=== PATIENT | female | born 1985 | race African-American/Black ===

== ENCOUNTER 2018-04-11 19:56 | Emergency (ER) | payer OTHER ==
[~2018-04-11] VITALS: Ht 177.8 cm; Wt 138.3 kg
[~2018-04-11 19:56] MED LIST: HYDROCODONE-AP1 EAC6 PO; SENNA8.6 MG PO
[2018-04-11] MEDS ORDERED: ZOFRAN ODT8 MG PO (22:12)
[2018-04-11] MEDS ORDERED: LITHIUM CARBON300 M3 PO (22:36)
[2018-04-11] MEDS ORDERED: SERTRALINE HCL50 MG PO (22:36)
[2018-04-11] MEDS ORDERED: TOPAMAX50 MG PO (22:37)
[2018-04-11 22:42] VITALS: BP 171/105
== END 2018-04-11 22:43 | disposition home or self-care (01) ==
LOC: ER 19:56
DX: R11.2 Nausea with vomiting, unspecified (principal); R19.7 Diarrhea, unspecified; Z85.43 Personal history of malignant neoplasm of ovary

== ENCOUNTER 2018-04-26 22:09 | Emergency (ER) | payer OTHER ==
[~2018-04-26] VITALS: Ht 177.8 cm; Wt 136.1 kg
[~2018-04-26 22:09] MED LIST changes: +LITHIUM CARBON300 M3 PO; +SERTRALINE HCL50 MG PO; +TOPAMAX50 MG PO; +ZOFRAN ODT8 MG PO
[2018-04-26] MEDS ORDERED: HYDROCHLOROTHIA25 M2 PO (22:18)
[2018-04-26 22:44] LABS: ABSOLUTE NEUTROPHILS 6.8 thou/uL (1.4-8.2); BASOPHILS 0.7 % (0.0-2.0); EOSINOPHILS 0.4 % (0.0-3.0); HEMATOCRIT 41.9 % (37.0-47.0); HEMOGLOBIN 13.7 gm/dL (12.0-15.0); MCH 27.3 pg (26.0-34.0); MCHC 32.8 g/dL (28.0-37.0); MCV 83.3 fL (80.0-100.0); MONOCYTES 5.7 % (1.0-8.0); PLATELET COUNT 295 thou/uL (150-400); POLYS 73.2 % (36.0-66.0); RBC 5.03 mil/uL (4.20-5.00); WBC 9.3 thou/uL (4.0-11.0)
[2018-04-26 22:50] LABS: ANION GAP 8 mmol/L (7-16); BUN 11 mg/dL (7-18); CALCIUM 9.9 mg/dL (8.5-10.1); CHLORIDE 100 mmol/L (98-107); CO2 29 mmol/L (21-32); CREATININE 0.9 mg/dL (0.6-1.0); POTASSIUM 3.8 mmol/L (3.5-5.1); SODIUM 137 mmol/L (136-145)
[2018-04-26 22:56] LABS: ALBUMIN 3.8 g/dL (3.4-5.0); DIRECT BILIRUBIN < 0.1 mg/dL (<0.1-0.3); SGOT 22 U/L (15-37); SGPT 28 U/L (30-65); TOTAL BILIRUBIN 0.4 mg/dL (<0.1-1.0); TOTAL PROTEIN 9.6 g/dL (6.4-8.2)
[2018-04-26 23:08] LABS: GLUCOSE 115 mg/dL (74-106)
[2018-04-26 23:19] LABS: URINE BILIRUBIN NEGATIVE (Negative); URINE BLOOD NEGATIVE (Negative); URINE CLARITY CLEAR; URINE COLOR YELLOW; URINE GLUCOSE-RANDOM* NEGATIVE (Negative); URINE KETONES NEGATIVE (Negative); URINE LEUKOCYTES-REFLEX NEGATIVE (Negative); URINE NITRITE-REFLEX NEGATIVE (Negative); URINE PROTEIN (DIPSTICK) NEGATIVE (Negative); URINE UROBILINOGEN 0.2 E.U./dl (0.2-1.0)
[2018-04-27] MEDS ORDERED: BENTYL 20 MG TA20 M1 PO (01:57)
[2018-04-27] MEDS ORDERED: CARAFATE 1 GM TA1 G1 PO (01:57)
[2018-04-27 02:03] VITALS: BP 177/109
== END 2018-04-27 02:06 | disposition home or self-care (01) ==
LOC: ER 22:09
PROVIDERS: Emergency Medicine
DX: R10.13 Epigastric pain (principal); R10.12 Left upper quadrant pain; R11.10 Vomiting, unspecified; Z85.43 Personal history of malignant neoplasm of ovary

== ENCOUNTER 2018-09-06 22:54 | Emergency (ER) | payer OTHER ==
[~2018-09-06] VITALS: Ht 175.3 cm; Wt 136.1 kg
[~2018-09-06 22:54] MED LIST changes: +BENTYL 20 MG TA20 M1 PO; +CARAFATE 1 GM TA1 G1 PO; +HYDROCHLOROTHIA25 M2 PO; +TOPROL XL100 MG PO
[2018-09-07] MEDS ORDERED: GUAIFEN-CODEINE10 ML PO (03:25)
[2018-09-07 03:32] VITALS: BP 149/83
== END 2018-09-07 03:33 | disposition home or self-care (01) ==
LOC: ER 22:54
DX: J06.9 Acute upper respiratory infection, unspecified (principal); I10 Essential (primary) hypertension

== ENCOUNTER 2018-09-09 08:57 | Emergency (ER) | payer OTHER ==
[~2018-09-09] VITALS: Ht 177.8 cm; Wt 138.8 kg
[~2018-09-09 08:57] MED LIST changes: +GUAIFEN-CODEINE10 ML PO
[2018-09-09] MEDS ORDERED: TOPAMAX 100 MG100 MG PO (09:40)
[2018-09-09] MEDS ORDERED: TESSALON PERLE100 MG PO (11:43)
[2018-09-09] MEDS ORDERED: ZOFRAN ODT4 MG PO (11:43)
[2018-09-09 11:50] VITALS: BP 112/75
== END 2018-09-09 11:57 | disposition home or self-care (01) ==
LOC: ER 08:57
DX: J06.9 Acute upper respiratory infection, unspecified (principal); I10 Essential (primary) hypertension

== ENCOUNTER → 2018-09-21 | Outpatient (CLI) | payer OTHER ==
[~2018-09-21] MED LIST changes: +TESSALON PERLE100 MG PO; +TOPAMAX 100 MG100 MG PO; +ZOFRAN ODT4 MG PO
--- NOTE | 2018-09-23 23:41 | SLE ---
[facility] [place] [address] POLYSOMNOGRAPHY STUDY Name: KENAN SZYMANSKI Room #: REG [facility]#: [id number] Admission: 09/21/18 ������������������ Attend Phys: Kamaljit Rodriguez MD Discharge: ������������������ Date of : 85 Report #: [id number] THIS REPORT FOR: //name// CC: Kamaljit Ogden MD DATE OF SERVICE: 09/21/2018 ATTENDING PHYSICIAN: Dr. Harpal Ogden. The patient is 33-year-old who weighs 400 pounds with a BMI of 78.1. The patient's Terreton score was 14 out of a maximum of 24. The patient underwent diagnostic sleep study at [facility]. During the night study, the patient spent 471 minutes in bed and slept for 453 minutes with a sleep efficiency of 96%. Sleep latency was 2.9 minutes with a REM latency of 204 minutes. Overall, sleep architecture showed normal stage 1 sleep, increased stage 2 sleep, normal N3 sleep and normal REM sleep. During the night of the study, the patient had 30 apneas. There were 29 obstructive, and 1 central and 85 hypopneas. The patient's apnea hypopnea index was 15.2 per hour with a REM index of 57.3 per hour. EKG revealed an average heart rate of 73 beats per minute with a maximum 100 beats per minute. No sustained arrhythmias observed. PLMS were seen at an index of 2 per hour and only 0.7 per hour caused EEG arousals. Nocturnal oximetry study revealed an average oxygen saturation of 95% with a lowest of 83%, 3.6 minutes were spent at an oxygen saturation less than 90%. The patient did meet the criteria for CPAP initiation, but it was too late in the night and there was not enough time to initiate CPAP. IMPRESSION: 1. Rclw-ig-qfpygpua sleep apnea-hypopnea syndrome with worsening during REM sleep. Total AHI 15.2 per hour with a REM AHI of 57.3 per hour. 2. No clinically significant periodic limb movements of sleep. 3. No clinically significant nocturnal hypoxia. RECOMMENDATIONS: 1. The patient is clinically symptomatic with an Terreton score of 14. I would recommend that the patients sleep apnea should be treated with either oral appliance as recommended by the dentist vs a trial of CPAP titration. [address] [address] POLYSOMNOGRAPHY STUDY Name: SZYMANSKIKENAN [id number] Admission: 09/21/18 ������������������ Attend Phys: Kamaljit Rodriguez MD Discharge: ������������������ Date of : 85 Report #: [id number] 2. Once the patient is optimally treated, then follow up in 4-6 weeks to assess compliance and to document clinical improvement. 3. Weight loss is strongly advised. 4. 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 5. Cautioned regarding driving until symptoms of sleep apnea resolve with the above recommendations. ��������������������������������������������� <ELECTRONICALLY SIGNED> ���������������������������������������� By: Kamaljit Rodriguez MD ��������������������������������������������� 09/23/18 2341 [id number] Kamaljit Rodriguez MD /nt
== END ==
LOC: SLEEPLAB 13:59
DX: G47.33 Obstructive sleep apnea (adult) (pediatric) (principal)

== ENCOUNTER 2018-10-18 10:09 | Emergency (ER) | payer OTHER ==
[~2018-10-18] VITALS: Ht 175.3 cm; Wt 142.9 kg
[2018-10-18 10:52] LABS: ABSOLUTE NEUTROPHILS 7.1 thou/uL (1.4-8.2); BASOPHILS 0.8 % (0.0-2.0); EOSINOPHILS 0.6 % (0.0-3.0); HEMOGLOBIN 12.2 gm/dL (12.0-15.0); LYMPHOCYTES 24.7 % (24.0-44.0); MCH 27.1 pg (26.0-34.0); MCHC 32.9 g/dL (28.0-37.0); MCV 82.4 fL (80.0-100.0); MONOCYTES 7.3 % (1.0-8.0); PLATELET COUNT 286 thou/uL (150-400); POLYS 66.6 % (36.0-66.0); RBC 4.49 mil/uL (4.20-5.00); RDW 14.8 % (10.5-14.5); WBC 10.7 thou/uL (4.0-11.0)
[2018-10-18 10:56] LABS: ANION GAP 7 mmol/L (7-16); BUN 10 mg/dL (7-18); CHLORIDE 102 mmol/L (98-107); CO2 30 mmol/L (21-32); CREATININE 0.8 mg/dL (0.6-1.0); GLUCOSE 104 mg/dL (74-106); POTASSIUM 3.4 mmol/L (3.5-5.1); SODIUM 139 mmol/L (136-145)
[2018-10-18 11:05] LABS: TROPONIN-I <0.06 ng/mL (<0.06)
[2018-10-18] MEDS ORDERED: NAPROSYN500 MG PO (11:44)
[2018-10-18 11:53] VITALS: BP 185/92
--- NOTE | 2018-10-19 08:10 | EKG ---
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: LÓPEZ : 1985 Requested By: Randa Wallis Order Number: [id number] MD: Homer Chávez Measurements Intervals [place] Rate: 87 P: 68 NC: 161 QRS: 53 QRSD: 96 T: 29 QT: 393 QTc: 473 Interpretive Statements Sinus rhythm Normal tracing No previous ECG available for comparison Electronically Signed On 10-19-2018 8:10:22 CDT by Homer Chávez [email or web address] ��������������������������������������������� <ELECTRONICALLY SIGNED> ���������������������������������������� By: Homer Chávez MD, [facility] ��������������������������������������������� 10/19/18 0810 [id number] [id number] Homer Chávez MD, FACC /EPI
== END 2018-10-18 11:54 | disposition home or self-care (01) ==
LOC: ER 10:09
PROVIDERS: Physician Assistant
DX: R07.89 Other chest pain (principal); I10 Essential (primary) hypertension

== ENCOUNTER → 2019-02-22 | Outpatient (CLI) | payer OTHER ==
[~2019-02-22] MED LIST changes: +NAPROSYN500 MG PO
== END ==
LOC: ULTRA 10:43
DX: R60.9 Edema, unspecified (principal)

== ENCOUNTER → 2019-11-16 | Outpatient (CLI) | payer OTHER ==
[~2019-11-16] VITALS: Ht 177.8 cm; Wt 158.8 kg
[~2019-11-16] MED LIST changes: +HAIR, SKIN & N1 EAC3 PO; +MULTI VITAMIN1 EACH PO
--- NOTE | ~2019-11-16 | P ---
[facility] [place] [address] PROCEDURE REPORT Name: KENAN SZYMANSKI Room #: REG [facility] Yan#: [id number] Admission: 11/16/19 Attend Phys: Theodore Logan Discharge: Date of : 85 Report #: [id number] THIS REPORT FOR: cc: Mirna Mcclure DNP, Mary E. DNP McElhinney, Christian C. MD ~ CC: Theodore Red MD DATE OF SERVICE: 11/16/2019 PROCEDURE PERFORMED: Upper endoscopy. HISTORY OF PRESENT ILLNESS: The patient is a 34-year-old female with a history of morbid obesity, scheduled for gastric Sonia-en-Y bypass surgery in the near future. Plan is for upper endoscopy prior to surgery. She denies any symptoms other than mild heartburn at times. No nausea, vomiting, or dysphagia. No previous history of upper endoscopy. DESCRIPTION OF PROCEDURE: The risks and benefits of the procedure were explained to the patient, those risks including but not limited to bleeding, perforation and the risk of sedation. She understood these risks and gave informed consent. Sedation was given using propofol per anesthesia. Next, using a standard Olympus upper endoscope, the scope was placed in the patient's mouth and advanced under direct vision through the esophagus, stomach and into the second portion of the duodenum. The larynx was normal. The esophagus was normal throughout. The GE junction was normal. Overall, the gastric mucosa was normal. The pylorus was normal and patent. The duodenal bulb, first and second portion were all normal. The scope was then withdrawn and the procedure terminated. The patient tolerated the procedure well. IMPRESSION: Normal upper endoscopy. RECOMMENDATIONS: Okay to proceed with gastric bypass surgery in the near future. Thank you for allowing me to participate in her care. By: [id number] [id number] Theodore Rendon MD /nt
== END | disposition home or self-care (01) ==
LOC: GI 07:50 → EDSTATUS 13:03 → GI 13:10
DX: E66.01 Morbid (severe) obesity due to excess calories (principal); R12 Heartburn; I10 Essential (primary) hypertension; E11.9 Type 2 diabetes mellitus without complications; K21.9 Gastro-esophageal reflux disease without esophagitis; G47.30 Sleep apnea, unspecified; Z98.890 Other specified postprocedural states; Z79.899 Other long term (current) drug therapy; Z90.49 Acquired absence of other specified parts of digestive tract; Z11.59 Encounter for screening for other viral diseases; Z68.30 Body mass index [BMI] 30.0-30.9, adult
CPT/HCPCS: 62110; 62900

== ENCOUNTER 2019-11-24 06:21 | Inpatient (IN) | payer OTHER ==
[~2019-11-24] VITALS: Ht 175.3 cm; Wt 158.8 kg
[2019-11-24 07:15] LABS: HEMATOCRIT 36.2 % (37.0-47.0); MCH 27.4 pg (26.0-34.0); MCHC 33.1 g/dL (28.0-37.0); MCV 82.7 fL (80.0-100.0); RBC 4.38 mil/uL (4.20-5.00); RDW 15.5 % (10.5-14.5); WBC 8.1 thou/uL (4.0-11.0)
[2019-11-24 07:30] LABS: CALCIUM 8.8 mg/dL (8.5-10.1); CREATININE 0.8 mg/dL (0.6-1.0); POTASSIUM 3.5 mmol/L (3.5-5.1)
[2019-11-24 07:37] VITALS: BP 136/95
[2019-11-24 07:37] LABS: ALBUMIN 3.1 g/dL (3.4-5.0); TOTAL BILIRUBIN 0.6 mg/dL (0.2-1.0); TOTAL PROTEIN 7.8 g/dL (6.4-8.2)
--- NOTE | 2019-11-24 07:40 | EKG ---
[facility] [place] [address] ELECTROCARDIOGRAM REPORT Name: KENAN SZYMANSKI Room #: 150-5 ADM IN M.R.#: [id number] Admission: 11/24/19 Attend Phys: Darius Red MD Discharge: Date of : 85 Report #: [id number] THIS REPORT FOR: cc: Mirna Mcclure DNP, Mary E. DNP Lundgren, Craig H. 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: YOLANDA : 1985 Requested By: Darius Red Order Number: [id number] MD: Homer Chávez Measurements Intervals [place] Rate: 88 P: [place]: QRS: 63 QRSD: 91 T: 28 QT: 369 QTc: 447 Interpretive Statements Sinus rhythm Baseline wander in lead(s) II,III,aVR,aVF,V3 Compared to ECG 10/18/2018 10:17:09 No significant change was found Electronically Signed On 11-24-2019 7:39:27 CDT by Homer Chávez [email or web address] <ELECTRONICALLY SIGNED> By: Homer Chávez MD, [facility] 11/24/19 [id number] Homer Chávez MD, [facility] /EPI
[2019-11-24 13:00] VITALS: BP 167/96
[2019-11-24 13:33] VITALS: BP 178/97
--- NOTE | 2019-11-24 15:37 | NUR ---
PATIENT ADMITTED FROM OR, WITH GASTRIC BYPASS, PATIENT ALERT AND ORIENTED X 4. UP WITH ASSIST X 1 WITH GAIT BELT AND WALKER. PATIENT IS A FALL RISK, FALL PRECAUTIONS IN PLACE. PATIENT C/O GAS PAINS WITH ABDOMEN AREA, NOT WANTING PAIN MEDS AT THIS TIME. PATIENT HAS LEFT HAND IV IN PLACE. PATIENT IS NPO. NOTIFIED PAHARMACY IN REGARD TO IV FLUID ORDER, NOT SHOWING UP IN THE COMPUTER, MARTINA/RN WILL HANDLE MEDS AND IV FLUIDS. ADMIT NOTE DONE.
--- NOTE | 2019-11-24 19:14 | NUR ---
PT REC'D FROM REC RM AT 1250 ALERT AND IN NO ACUTE DISTRESS. PT SETTLED INTO ROOM AND ASSESSMENT COMPLETED. PT RUNNING HIGH BP IN OR AND REC RM BUT NOW BETTER. AMBULATED IN THE HALLS TO HELP ALLEVIATE GAS PAINS. PT HAD SOME BRIGHT RED SPIT UP WHEN BELCHED THAT WAS REPORTED TO DR. STANFORD. ORDER FOR SWABS AND ZOFRAN OBTAINED WELL. IV FLUIDS INFUSING. GOOD URINE OUTPUT. MS FOR PAIN.
[2019-11-24 20:30] VITALS: BP 180/93
[2019-11-25 00:07] LABS: GLYCOHEMOGLOBIN (HGB A1C) 6.7 % (4.8-5.6)
[2019-11-25 00:53] VITALS: BP 182/100
--- NOTE | 2019-11-25 03:11 | NUR ---
ASSESSMENT COMPLETED. PT RESTING IN BED. AFEBRILE.LAP SITES TO ABDOMEN LOOK OKAY. BRIDGES TO D/D WITH GOOD OUTPUT- IVF INFUSING. PT HAS NOT BEEN UP WALKING TONIGHT. BP ELEVATED SO PRN HYDARALIZINE IN PLACE AND IN USE.PT BEEN C/O HICCUPS , CAUSING HER SO MUCH DISCOMFORT. ONE TIME ORDER OF REGLAN IVP GIVEN. PT DENIES NAUSEA BUT STATES THE HICCUPS MAKES HER SPIT UP SOME BLOOD TINGED SPIT-DR MUHAMMAD MADE AWARE EARLIER ON IN THE SHIFT.PT DENIES ANY CHEST TIGHTNESS OR HEADACHE. SHE ALSO DENIES HEADACHE OR DIZZINESS. SHE DOES NOT LIKE THE SCDS.OTHERWISE PT IS CALM AND COOPERATIVE.WILL CONTINUE WITH POC TILL EOS.
[2019-11-25 05:36] VITALS: BP 155/109
--- NOTE | 2019-11-25 07:27 | NUR ---
ASSUMED CARE OF PATIENT SHE IS SITTING UP IN BED. STATES DID NOT SLEEP. REMAINS ON CLEAR LIQUIDS. STILL SPITTING UP BLOOD TINGED SPUTUM. IV FLUIDS INFUSING ORDERED. WAS UP WALKING YESTERDAY. WILL MANAGE N&V AND PAIN MANAGEMENT.
[2019-11-25 07:58] VITALS: BP 183/125
--- NOTE | 2019-11-25 11:30 | NUR ---
DR PHILLIPS HERE TO SEE PATIENT STATED BRIDGES COULD BE DCD. THIS NURSE DCD WITH NO DISCOMFORT TO PATIENT.PT UP IN BEDSIDE CHAIR.
--- NOTE | 2019-11-25 12:25 | NUR ---
ASSESSMENT: CM REVIEWED CHART AND SPOKE WITH PATIENT. PT IS ALERT AND ORIENTED X4. PT IS S/P LAP GASTRIC BYPASS. PT REPORTS THAT SHE LIVES IN A HOUSE WITH HER FIANCE. PT REPORTS THAT SHE HAS TWO STEPS TO ENTER WITH A HANDRAIL AND NO STEPS ONCE INSIDE. PT REPORTS THAT SHE IS INDEPENDENT WITH ADLS AND AMBULATION. PT REPORTS THAT SHE HAS NOT HAD HH IN THE PAST. PT HAS NO DME OR THE NEED FOR IT. CM DISCUSSED ROLE. PT REPORTS NO FURTHER NEEDS FROM CM. PT REPORTS PLAN IS FOR HER TO LIKELY DISCHARGE HOME TOMORROW.
--- NOTE | 2019-11-25 15:51 | NUR ---
B/P AT 15:15= 169/102 PT GIVEN HYDRALIZINE 10 MG IV PUSH AT THIS TIME. ALSO GIVEN IV ZOFRAN.
--- NOTE | 2019-11-25 17:15 | NUR ---
PATIENT RESTING IN BED GETS UP TO BATHROOM BRIDGES DCD EARLY WITH 850 CC CLEAR YELLOW URINE IN BAG. DR STANFORD HERE TO SEE PATIENT NEW ORDER FOR LIQUID PO PAIN MED HYDROCODONE. AT MIDNIGHT PT TO BE NPO TO HAVE UPPER GI AT 0930 AM THURSDAY. PATIENT AND THIS NURSE SPOKE WITH PATIENT'S BOYFRIEND TO KEEP UPDATED. PT IS PLEASANT AND COOPERATIVE WITH CARE. THIS NURSE LEAVING AT THIS TIME TURNING CARE OVER TRAV JEAN.
[2019-11-25 17:28] LABS: HEMATOCRIT 37.4 % (37.0-47.0); MCH 27.2 pg (26.0-34.0); RBC 4.4 mil/uL (4.20-5.00); WBC 15.8 thou/uL (4.0-11.0)
[2019-11-25 17:36] LABS: CALCIUM 8.8 mg/dL (8.5-10.1); CREATININE 1.2 mg/dL (0.6-1.0); MAGNESIUM 1.8 mg/dL (1.8-2.4); POTASSIUM 3.5 mmol/L (3.5-5.1)
[2019-11-25 20:35] VITALS: BP 115/94
[2019-11-26] VITALS (8 sets, daily range): BP systolic 85–188; BP diastolic 46–154
--- NOTE | 2019-11-26 02:54 | NUR ---
ASSUMED CARE OF PT AT 1900. PT IS A/O X4. WAS TEARFUL AND C/O PAIN AND NAUSEA. PRN PAIN AND NAUSEA MEDICATION GIVEN ORDERED. LAP SITES X5 DRY AND INTACT. PT AMBULATED IN HALLWAY FOR APPROXIMATELY 5 MINUTES. CURRENTLY IN BED AND APPEARS TO BE SLEEPING. FALL PRECAUTIONS IN PLACE, CALL LIGHT WITHIN REACH. WILL CONTINUE TO MONITOR.
--- NOTE | 2019-11-26 09:55 | NUR ---
RADIOLOGY CALLED STATED THAT ON UPPER GI DOCTOR STATED CONTRAST WAS GETTING THROUGH WAS SLOW BUT THINKS IS EDEMA AROUND THE SURGERY SITE. WILL PUT OFFICAL REPORT IN COMPUTER TODAY.
--- NOTE | 2019-11-26 10:01 | NUR ---
DR STANFORD HERE THIS AM TO SEE PATIENT. ORDERED DUCOLAX SUPP PRN FOR CONSTIPATION. IV TEAM TO PLACE IV ACSESS TODAY.
--- NOTE | 2019-11-26 10:33 | NUR ---
PATIENT GIVEN PRN SUPP FOR CONSTIPATION AT THIS TIME. PT ALSO GIVEN LOVENOX WAS OFF UNIT EARLIER.
--- NOTE | 2019-11-26 13:30 | NUR ---
PATIENT AGONAL BREATHING. UNABLE TO PROTECT AIRWAY. DR. HUMMEL INTUBATED PATIENT WITH 7.5 ET TUBE. AMBU BAG BEING UTILIZED FOR TRANSPORT.
[2019-11-26 14:45] LABS: HEMATOCRIT 42.3 % (37.0-47.0); HEMOGLOBIN 13.4 gm/dL (12.0-15.0); MCH 27.3 pg (26.0-34.0); MCHC 31.8 g/dL (28.0-37.0); RBC 4.92 mil/uL (4.20-5.00); RDW 16.2 % (10.5-14.5); WBC 22.5 thou/uL (4.0-11.0)
[2019-11-26 14:46] LABS: ALBUMIN 2.2 g/dL (3.4-5.0); CALCIUM 7.5 mg/dL (8.5-10.1); TOTAL BILIRUBIN 2.5 mg/dL (0.2-1.0); TOTAL PROTEIN 6.1 g/dL (6.4-8.2)
[2019-11-26 14:49] LABS: CREATININE 3.5 mg/dL (0.6-1.0); POTASSIUM 4.5 mmol/L (3.5-5.1)
--- NOTE | 2019-11-26 15:48 | NUR ---
1320- RAPID RESPONSE CALLED OVER HEAD. SENIOR PROCESS ENGINEER RESPONDED. UPON ARRIVAL TO PATIENT ROOM, PATIENT UNRESPONSIVE, AGONAL BREATHING. DR. WOODSON RESPONDED TO THE RAPID RESPONSE. PATIENT AGONAL BREATHING, RT STARTED BAGGING PATIENT. SHE HAD A PULSE, BLOOD PRESSURE SBP STARTED IN THE 90S. WITH CARDIAC TRANSPORT MONITOR, RT, UNIT RN, AND ICU INDUSTRIAL DESIGN INTERN. RT CHECKED PULSE DURING TRANSPORT TO ICU MULTIPLE TIMES, REPORTING PATIENT HAD A PULSE. UPON ARRIVAL TO ICU, SHE WAS PLACED ON THE MONITOR, PULSE CHECK ONCE AGAIN WITH NOTED NO PULSE. DENICE COHEN CALLED. SEE FLOW SHEET. JADEN COHEN CALLED, TIME OF CALLED BY DR. MELGOZA AT 1548. DR. STANFORD NOTIFIED AND WAS AWARE. FAMILY ALLOWED TO COME BACK AND SEE HER SHORTLY THEREAFTER. PERFORMED. JADEN WAS CALLED AT 1350. DR. STANFORD CAME TO ROOM, DR. WOODSON ARRIVED, DR. MELGOZA, DR. GARZA, DR. NIETO, ICU RNS, PHARMACY AND THE CODE BLUE TEAM.
--- NOTE | 2019-11-26 19:51 | NUR ---
AT APPROX 1300 IV NURSE CAME TO UNIT AND PATIENT'S ROOM TO START IV ACSESS. PATIENT WAS ALERT XS4 NO PAIN OR RESP DISTRESS. THIS NURSE LEFT ROOM. AT APPROX AT APPROX 1310 CALLED TO ROOM PATIENT SITTING UP LOOKING STRAIGHT WITH FIXED STARE THIS NURSE CALLED HER NAME SHE TURNED HEAD IN MY DIRECTION.PT DID NOT ANSWER. RAPID RESPONSE CALLED. V.S TAKEN BLOOD SUGAR TAKEN = 175 HOSPITALIST TO ROOM. CODE CALLED AND DR HUMMEL INTUBATED AT 1330 SIZE 7.5 24@TEETH. PATIENT TRANSFERRED TO ICU 1400 ROOM 238.
--- NOTE | 2019-11-26 20:08 | NUR ---
AT 1600 TOOK PATIENT'S PERSONAL BELONGINGS TO ICU ROOM 238.
--- NOTE | 2019-11-28 09:06 | 2DMMODE ---
[facility] [place] [address] 2 D/M-MODE ECHOCARDIOGRAM Name: KENAN SZYMANSKI Room #: 238-P DIS IN M.R.#: [id number] Admission: 11/24/19 Attend Phys: Darius Red MD Discharge: 11/26/19 Date of : 85 Report #: [id number] THIS REPORT FOR: cc: Mirna Mcclure DNP, Mary E. DNP Park, Jin S. MD ~ APPROVED REPORT Study performed: 11/26/2019 14:53:48 EXAM: Limited 2D Echocardiogram Patient Location: ICU Room #: 238 Status: on-call/STAT BSA: 2.62 HR: 140 bpm Rhythm: Tachycardia Other Information Study Quality: Technically Limited Indications Stat echo for CODE BLUE. Status post-op. Left Ventricle The left ventricle is normal size. Left ventricular systolic function is grossly normal. Right Ventricle Right ventricle is not well visualized. Pericardium There is no pericardial effusion. <Conclusion> Limited study. Technically difficult study. The left ventricle is normal size. Left ventricular systolic function is grossly normal. Right ventricle is not well visualized. <ELECTRONICALLY SIGNED> By: Zach Santana MD 11/28/19904 4 0905 Zach Santana MD /INF
--- NOTE | 2019-12-05 07:46 | O ---
[facility] [place] [address] OPERATIVE REPORT Name: KENAN SZYMANSKI Room #: 238-P [facility] IN M.R.#: [id number] Admission: 11/24/19 Attend Phys: Darius Red MD Discharge: 11/26/19 Date of : 85 Report #: [id number] THIS REPORT FOR: cc: Mirna Mcclure DNP, Mary E. DNP Joseph, Sigi P. MD ~ CC: Mirna Red DATE OF SERVICE: 11/24/2019 PREOPERATIVE DIAGNOSES: 1. Morbid obesity. 2. Hypertension. 3. Sleep apnea. 4. Gastroesophageal reflux disease. POSTOPERATIVE DIAGNOSES: 1. Morbid obesity. 2. Hypertension. 3. Sleep apnea. 4. Gastroesophageal reflux disease. OPERATIVE PROCEDURES DONE: 1. Laparoscopic Sonia-en-Y gastric bypass. 2. Upper GI endoscopy. OPERATING SURGEON: Darius Red MD INDICATIONS FOR THE PROCEDURE: The patient is a 34-year-old female who presented with features of morbid obesity. She had a class 3 extreme obesity. She was noted to have a weight of 164 kg with a BMI of 53 with the above-listed comorbidities. The patient was advised laparoscopic Sonia-en-Y gastric bypass, possible hiatal hernia repair, and upper GI endoscopy. The patient showed understanding and agreed to proceed. DESCRIPTION OF PROCEDURE: After explaining to the patient in detail and informed consent was obtained, the patient was identified in the preoperative holding area. The patient was transferred to the operating room. Preoperative antibiotics and Lovenox was given prior to surgery. After induction of anesthesia, the abdomen was prepped and draped in a sterile fashion. Through a left upper quadrant 1 cm incision and using Optiview technique, peritoneal cavity was entered and pneumoperitoneum was created. Thereafter, under direct vision, another 5 mm trocar was placed in the left mid abdomen, another 15 mm trocar was placed in the right mid abdomen, another 5 mm trocar was placed in the right subcostal region, and through a 1 cm incision in the epigastrium, a [facility] [place] [address] OPERATIVE REPORT Name: SZYMANSKIKENAN Room #: 238-P [facility].#: [id number] Admission: 11/24/19 Attend Phys: Darius Red MD Discharge: 11/26/19 Date of : 85 Report #: [id number] Rachell retractor was introduced and the left lobe of the liver was retracted. Upon initial inspection, the patient did not have any features of hiatal hernia. The gastrohepatic omentum was divided. The lesser sac was entered. I then divided the small blood vessels and the fatty tissues along the lesser curve at the junction of the proximal and middle third of the stomach. Using Endo-TAMMY white load stapler, I then fired another green load stapler with Tereza-Strips in transverse fashion. I then did a posterior dissection and also dissected the angle of His. I then fired 2 staplers vertically up to the angle of His to create the gastric pouch. Once this was completed, I then divided the omentum in the middle using a Harmonic scalpel. The proximal small bowel was then identified at the ligament of Treitz and then I measured downstream for about 50 cm. An enterotomy was made at this point. A posterior gastrotomy was made on the gastric pouch and a posterior gastrojejunostomy was made using an Endo-TAMMY blue load stapler. The common gastroenterotomy was then closed using 2 layers of V-Loc continuous sutures. I then divided the biliary limb just proximal to the anastomosis and measured down the Sonia limb downstream for about 125 cm. An enterotomy was made at this point. Another enterotomy was made on the biliary limb and a uphb-ke-lxsh anastomosis was made using a TAMMY blue load stapler. The common enterotomy was closed using another TAMMY blue load stapler. The jejunojejunostomy defect was closed using 2-0 silk sutures. Absolute hemostasis was ensured. I then clamped the Sonia limb using a bowel clamp. I then performed an upper GI endoscopy. The scope was introduced into the esophagus, was gradually advanced into the gastric pouch and the pouch appeared to be of adequate size and the Sonia limb was entered without difficulty. The stomach was suctioned out. Prior to this, an air leak test was performed by insufflation of the gastric pouch and anastomosis and by irrigation of fluid along the staple line. There was no leak that was noted. Stomach was suctioned out and the scope was removed. Absolute hemostasis was ensured. Thorough saline irrigation was given. Approximately about 10 mL of lidocaine and Marcaine mix was instilled under the left hemidiaphragm. The incisions were then closed with 4-0 Monocryl. The 15 mm port site incision was closed with 0 Vicryl for the fascia. Skin was closed with 4-0 Monocryl for all the incisions. Dermabond was applied. The patient was stable at the end of the procedure. The patient was awoken from anesthesia and was transferred to the recovery room in stable condition. ESTIMATED BLOOD LOSS: Approximately 20 mL. CONDITION OF THE PATIENT: Stable. FLUIDS GIVEN: Per anesthesia notes. SPECIMEN SENT: None. COMPLICATIONS: None. [address] [address] OPERATIVE REPORT Name: KENAN SZYMANSKI Room #: 238-P DIS IN [facility].#: [id number] Admission: 11/24/19 Attend Phys: Darius Red MD Discharge: 11/26/19 Date of : 85 Report #: [id number] ANESTHESIA: General anesthesia. <ELECTRONICALLY SIGNED> By: Darius Red MD 12/05/19 0746 1608 1715 Darius Red MD /nt
== END 2019-11-26 20:04 | DRG 621 ==
LOC: TBA 06:21 → 4S 06:21 → PRE 09:55 → 4S 13:14 → PRE 14:56 → ICU 11-26 14:24
PROVIDERS: ADMIT Surgery; ATTEND Surgery
PROC: 0DJ08ZZ Inspection of Upper Intestinal Tract, Via Natural or Artificial Opening Endoscopic (ICD-10-PCS; principal; 2019-11-24)
PROC: 0D164ZA Bypass Stomach to Jejunum, Percutaneous Endoscopic Approach (ICD-10-PCS; principal; 2019-11-24)
DX: E66.01 Morbid (severe) obesity due to excess calories (principal); I10 Essential (primary) hypertension; K21.9 Gastro-esophageal reflux disease without esophagitis; Z20.828 Contact with and (suspected) exposure to other viral communicable diseases; Z79.899 Other long term (current) drug therapy; Z68.43 Body mass index [BMI] 50.0-59.9, adult
CPT/HCPCS: 10100; 10195; 50010; 50101; 50222; 50249; 50386; 50555; 50739; 50740; 51489; 52205; 52265; 53307; 53311; 54022; 54118; 55245; 56462; 56525; 56526; 56719; 57092; 62110; 62900; 70005